=== PATIENT | male | born 1940 | race Caucasian/White ===

== ENCOUNTER 2016-09-13 10:09 | Emergency (ER) | payer MEDICARE, OTHER ==
[~2016-09-13 10:09] MED LIST: ASPI-630 PO; ATOR10TA PO; CELE100C PO; CHOL5POW MC; DABI150C PO; DIGO125T PO; DILT180C29 PO; DOCU-109 PO; DUTA0.5C PO; FENT1PAT91 TP; FENT1PAT93 TP; FINA5TAB4 PO; HYDR-2678 PO; HYDR-2802 PO; LISI10TA2 PO; METO50TA10 PO; MULT-208 PO; PANT40TA3 PO; SERT100T PO; SERT25TA PO; ZOLP5TAB PO; ZOLP5TAB5 PO
--- NOTE | 2016-09-13 11:10 | RAD ---
EXAM: Head and cervical spine CT without contrast. HISTORY: Fall. TECHNIQUE: Computed tomographic images of the head and cervical spine were obtained without contrast. One or more of the following individualized dose reduction techniques were utilized for this examination: 1. Automated exposure control. 2. Adjustment of the mA and/or kV according to patient size. 3. Use of iterative reconstruction technique. COMPARISON: MRI dated 01/20/2013. FINDINGS: Head: There is no acute or subacute hemorrhage. There is no mass effect or midline shift. There is no hydrocephalus. There are scattered areas of hypodensity within the cerebral white, a nonspecific finding likely due to chronic small vessel disease. There is mild age-appropriate cerebral white loss. The orbits, paranasal sinuses and mastoid air cells are unremarkable. No calvarial lesion is seen. Cervical spine: There is cervical kyphosis. There is mild anterolisthesis of C4 on C5 and C7 on T1, and to lesser extent, C5 on C6 and C3 on C4. There is degenerative endplate remodeling with disc space narrowing and osteophytosis predominantly at C5-C6 and C6-C7. There is vacuum phenomenon within these disc spaces. There is laminectomy decompression and instrumented posterior spinal fusion at C3 through C6. There is no evidence of instrumentation fracture or loosening. There is a calcified granuloma within the right upper lobe. No suspicious pulmonary nodule is seen. At C2-C3, there is a disc bulge and endplate remodeling. There is mild left greater than right facet arthropathy. There is minimal left foraminal stenosis. At C3-C4, there is a disc bulge and endplate remodeling. There is severe facet arthropathy. There is mild bilateral foraminal stenosis. At C4-C5, there is a posterior central disc osteophyte complex superimposed on a disc bulge. There is severe right and moderate to severe left facet arthropathy. There is mild right foraminal stenosis. At C5-C6, there is a disc bulge and endplate remodeling. There is mild facet arthropathy. There is mild left foraminal stenosis. At C6-C7, there is a disc bulge and endplate remodeling. There is mild lateral facet arthropathy. There is no stenosis. IMPRESSION: 1. No acute intracranial finding or evidence of acute cervical spine trauma. 2. Decreased attenuation within the cerebral white matter, a nonspecific finding likely due to chronic small vessel disease. 3. Degenerative change throughout the spine, described above. 4. Instrumented posterior spinal fusion and laminectomy decompression at C3-C6.
--- NOTE | 2016-09-13 11:24 | PHYS DOC ---
General Chief Complaint: HEADACHE Stated Complaint: CONFUSION;[facility] FALL YESTERDAY Time Seen by MD: 10:20 Source: patient, family Exam Limitations: clinical condition Problems: History of Present Illness Initial Comments Pt is 75/M to ED with family for head injury and AMS. Spouse reports pt was using walker yesterday going to the kitchen, tried to turn around and became tripped up falling hitting right side of his head on the floor. Fall unwitnessed, pt denies LOC spouse heard the fall and found pt immediately afterward lying on the floor awake/alert. After the fall spouse reports pt with some confusion which persists this morning. Pt very weak this morning but he denies headache/focal weakness/n/v. Pt has h/o atrial fibrillation takes pradaxa, he denies any chest pain/sob/arm or neck discomfort. Denies any other injury from the fall. Pt is questionable historian as he is confused in ED. ED VS: 98.3, 78, 16, 110/65, 98% RA Follows with Dr Byrd [facility]iology at Occurred: yesterday Severity: moderate Injuries/Pain Location: head Context: tripped Loss of Consciousness: no loss of consciousness Modifying Factors: worse with movement, improves with rest Associated Symptoms: trouble walking (denies other complaints) Allergies: Coded Allergies: No Known Drug Allergies (Unverified , 04/16/14) Past Medical History Medical History: other (atrial fibrillation, CAD, HLP, HTN) Surgical History: other (hip replacement, cervical fusion, whipple) Social History Smoker: non-smoker Alcohol: none Drugs: none Review of Systems Constitutional: denies chills, denies diaphoresis, denies fever, malaise, weakness Respiratory: denies cough, denies shortness of breath, denies wheezing Cardiovascular: denies chest pain, denies edema, denies palpitations, denies syncope Gastrointestinal: denies abdominal pain, denies diarrhea, denies nausea, denies vomiting Genitourinary: denies dysuria, frequency, denies hematuria Musculoskeletal: denies back pain, denies joint swelling, denies neck pain Psychiatric/Neurological: see HPI, denies headache Physical Exam General Appearance: no apparent distress, thin Head: other (abrasion/soft tissue swelling right parietal, no palpable bony deformity, negative Reyna/raccoon eyes) Eyes: bilateral eye normal inspection, bilateral eye PERRL, bilateral eye EOMI Ears, Nose, Mouth, Throat: hearing grossly normal, no evidence of ENT injury ( no ear/nose discharge no fluid behind TMs b/l), no dental injury Neck: non-tender, other (supple, at baseline per pt has h/o fusion) Cardiovascular/Respiratory: normal peripheral pulses, normal breath sounds, no respiratory distress, irregularly irregular (rate controlled initial VS, however RVR shortly after arrival persists) Gastrointestinal: non tender, soft Back: no CVA tenderness, no vertebral tenderness Extremities: no evidence of injury, normal range of motion, non-tender, no pedal edema, pelvis stable 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 PHYSICIAN: ASHER LYLES DO REASON: ams PROCEDURE: PORTABLE CHEST 1V EXAM: Chest, single view. HISTORY: Chest pain. COMPARISON: 11/06/2015. FINDINGS: A frontal view of the chest is obtained. There is no infiltrate, effusion or pneumothorax. The heart is normal in size. IMPRESSION: No acute pulmonary finding. DICTATED AND SIGNED BY: CAMMY PEREZ MD DATE: 09/13/16 1131 CC: GAGE [place]; ASHER LYLES DO ~ PATIENT: GILDARDO CANADA ACCOUNT: [id number] : 1940 LOCATION: ER AGE: 75 SEX: M EXAM STATUS: REG ER ORD. PHYSICIAN: RAFAL,ASHER K DO REASON: head trauma PROCEDURE: CT HEAD AND CERVICAL SPINE WO EXAM: Head and cervical spine CT without contrast. HISTORY: Fall. TECHNIQUE: Computed tomographic images of the head and cervical spine were obtained without contrast. One or more of the following individualized dose reduction techniques were utilized for this examination: 1. Automated exposure control. 2. Adjustment of the mA and/or kV according to patient size. 3. Use of iterative reconstruction technique. COMPARISON: MRI dated 01/20/2013. FINDINGS: Head: There is no acute or subacute hemorrhage. There is no mass effect or midline shift. There is no hydrocephalus. There are scattered areas of hypodensity within the cerebral white, a nonspecific finding likely due to chronic small vessel disease. There is mild age-appropriate cerebral white loss. The orbits, paranasal sinuses and mastoid air cells are unremarkable. No calvarial lesion is seen. Cervical spine: There is cervical kyphosis. There is mild anterolisthesis of C4 on C5 and C7 on T1, and to lesser extent, C5 on C6 and C3 on C4. There is degenerative endplate remodeling with disc space narrowing and osteophytosis predominantly at C5-C6 and C6-C7. There is vacuum phenomenon within these disc spaces. There is laminectomy decompression and instrumented posterior spinal fusion at C3 through C6. There is no evidence of instrumentation fracture or loosening. There is a calcified granuloma within the right upper lobe. No suspicious pulmonary nodule is seen. At C2-C3, there is a disc bulge and endplate remodeling. There is mild left greater than right facet arthropathy. There is minimal left foraminal stenosis. At C3-C4, there is a disc bulge and endplate remodeling. There is severe facet arthropathy. There is mild bilateral foraminal stenosis. At C4-C5, there is a posterior central disc osteophyte complex superimposed on a disc bulge. There is severe right and moderate to severe left facet arthropathy. There is mild right foraminal stenosis. At C5-C6, there is a disc bulge and endplate remodeling. There is mild facet arthropathy. There is mild left foraminal stenosis. At C6-C7, there is a disc bulge and endplate remodeling. There is mild lateral facet arthropathy. There is no stenosis. IMPRESSION: 1. No acute intracranial finding or evidence of acute cervical spine trauma. 2. Decreased attenuation within the cerebral white matter, a nonspecific finding likely due to chronic small vessel disease. 3. Degenerative change throughout the spine, described above. 4. Instrumented posterior spinal fusion and laminectomy decompression at C3-C6. DICTATED AND SIGNED BY: CAMMY PEREZ MD DATE: 09/13/16 1103 CC: GAGE [place]; ASHER LYLES DO ~ 1157: Time in department 1h 49min, multiple labs remain pending. Pt will have prolonged ED course due to radiology delay. WBC 19.7, Hb 12.6, plt 78, INR 1.2, lactic acid 1.1, BUN 79, Cr 3.1, alb 2.4, nathalia ca 9.7, t. bili 1.3, alk ph 452, BNP 8547, trop I < 0.017, UA grossly + infection 500cc NS bolus, rocephin 1g IV, cardizem 20mg IV bolus initiated. 1246: Pt discussed with [facility] transfer team, will call back. 1304: Pt discussed with Dr Owusu who accepts EMS transfer for admission and further eval/tx. Agreeable with current care no new orders received. IMPRESSIONS: AMS Mechanical Fall Head injury (pradaxa) Atrial fibrillation with RVR ARF UTI Elevated BNP ASHER LYLES DO September 13, 2016 11:24
--- NOTE | 2016-09-13 11:35 | RAD ---
EXAM: Chest, single view. HISTORY: Chest pain. COMPARISON: 11/06/2015. FINDINGS: A frontal view of the chest is obtained. There is no infiltrate, effusion or pneumothorax. The heart is normal in size. IMPRESSION: No acute pulmonary finding.
[2016-09-13 11:44] LABS: BASO # 0.1 x10^3/uL (0.0-0.2); BASO % 0 % (0-3); EOS # 0.2 x10^3/uL (0.0-0.7); EOS % 1 % (0-3); HEMATOCRIT 38.3 % (39.0-53.0); HEMOGLOBIN 12.6 g/dL (13.0-17.5); LYMPH # 0.9 x10^3/uL (1.0-4.8); LYMPH % 4 % (24-48); MEAN CORPUSCULAR HEMOGLOBIN 26 pg (25-35); MEAN CORPUSCULAR HGB CONC 33 g/dL (31-37); MEAN CORPUSCULAR VOLUME 80 fL (79-100); MONO # 0.5 x10^3/uL (0.0-1.1); MONO % 2 % (0-9); NEUT # 18.1 x10^3uL (1.8-7.7); NEUT % 92 % (31-73); PLATELET COUNT 78 x10^3/uL (140-400); RED BLOOD COUNT 4.81 x10^6/uL (4.30-5.70); RED CELL DISTRIBUTION WIDTH 20.9 % (11.5-14.5); WHITE BLOOD COUNT 19.7 x10^3/uL (4.0-11.0)
[2016-09-13 11:55] LABS: ALBUMIN 2.4 g/dL (3.4-5.0); ALBUMIN/GLOBULIN RATIO 0.6 (1.0-1.7); CALCIUM 8.4 mg/dL (8.5-10.1); CREATININE 3.1 mg/dL (0.7-1.3); GFR 19.7; POTASSIUM 4.7 mmol/L (3.5-5.1); TOTAL BILIRUBIN 1.3 mg/dL (0.2-1.0); TOTAL PROTEIN 6.4 g/dL (6.4-8.2)
--- NOTE | 2016-09-13 12:21 | EKG ---
[address] [address] Test Date: 2016-09-13 Test Time: 12:21:40 Pat Name: GILDARDO CANADA Department: Room: Gender: M Log Cutter: : 1940 Requested By: ASHER LYLES Order Number: [id number] Reading MD: Earnest Cole Measurements Intervals [place] Rate: 119 P: OR: QRS: 36 QRSD: 78 T: 26 QT: 314 QTc: 449 Interpretive Statements ATRIAL FIBRILLATION WITH RVR NON-SPECIFIC ST/T CHANGES Electronically Signed On 09-15-2016 9:50:29 CDT by Earenst Cole
[2016-09-13 12:23] LABS: BILIRUBIN,URINE SMALL (NEG); CLARITY,URINE CLOUDY; COLOR,URINE AMBER; GLUCOSE,URINE NEG (NEG)
[2016-09-13 12:24] LABS: BACTERIA,URINE MANY /HPF (0-FEW); GRANULAR CASTS,URINE MOD /HPF; NITRITE,URINE NEG (NEG); SQUAMOUS EPITHELIAL CELL,UR FEW /LPF; UROBILINOGEN,URINE 1 mg/dL (0.2 mg/dL); WBC,URINE >40 /HPF (0-4)
[2016-09-13 12:33] LABS: % BANDS 10 % (0-9); % EOS 1 % (0-5); % LYMPHS 2 % (24-48); % MONOS 5 % (0-10); % SEGS 82 % (35-66)
[2016-09-13 12:34] LABS: TOXIC GRANULATION SLIGHT; TOXIC VACUOLATION SLIGHT
[2016-09-13 12:36] LABS: ANISOCYTOSIS MOD
[2016-09-13 12:37] LABS: OVALOCYTES OCC
[2016-09-13 12:38] LABS: PLT ESTIMATE DECREASED (ADEQUATE)
[2016-09-13 12:53] LABS: DIG < 0.2 ng/dL (0.9-2.0)
[2016-09-13] MEDS: dilTIAZem 25 MG/5 ML VIAL IVP ONE (13:00)
[2016-09-13] MEDS ORDERED: IV NORMAL SALINE 1,000ML 500 ML IV SCH (13:10)
[2016-09-13] MEDS ORDERED: cefTRIAXone SODIUM 1 GM VIAL IV ONE (13:13)
[2016-09-13] MEDS ORDERED: IV DEXTROSE 5% 0 ML IV ONE (13:13)
[2016-09-13] MEDS ORDERED: IV NORMAL SALINE 50ML 50 ML ONE (13:13)
[2016-09-13] MEDS ORDERED: NOREPINEPHRINE BITARTRATE 4 MG/4 ML VIAL. IV ONE (13:55)
[2016-09-13] MEDS ORDERED: IV NORMAL SALINE 250ML 250 ML ONE (13:55)
[2016-09-13] MEDS ORDERED: NOREPINEPHRINE BITARTRATE 8 MG in IV DEXTROSE 5% 250 ML IV PRN (14:00)
[2016-09-13 14:01] VITALS: BP 97/50
[2016-09-13] MEDS ORDERED: NOREPINEPHRINE BITARTRATE 8 MG in IV NORMAL SALINE 250ML 250 ML IV PRN (14:15)
--- NOTE | 2016-09-13 14:31 | ACF ---
Admission Criteria Forms ATRIAL FIBRILLATION Clinical Indications for Admission to Inpatient Care (Place 'X' for any and all applicable criteria): Admission indicated for ANY ONE of the following(1)(2)(3)(4)(5) : [ ]I. Myocardial ischemia [ ]II. Dyspnea or hypoxemia [ ]III. Hemodynamic instability [ ]IV. Heart failure (e.g., pulmonary edema) (7) [ ]V. New-onset (less than 48 hours) atrial fibrillation with high risk for causing complications secondary to comorbidities (eg, symptomatic heart failure ) [X]. Altered mental status [ ]VII. Syncope [ ]VIII. Patient has implantable cardioverter defibrillator that has fired more than once within past 24hr or needs immediate adjustment of settings that cannot be done other than in inpatient setting. (8) [ ]IX. Suspected accessory pathway (e.g., Oatzl-[id number]-Gupwd syndrome) on ECG [ ]X. Recent systemic thromboembolism (eg, stroke) [ ]XI. Medication toxicity (e.g., digitalis) causing arrhythmia(9) [ ]XII. Underlying medical condition that necessitates inpatient care (e.g., thyrotoxicosis, pneumonia) (10) [ ]XIII. Continuous ECG monitoring is required for condition causing arrhythmia (e.g., severe hyperkalemia, hypokalemia, acid-base disturbance).(11)(12)(13) [ ]XIV. Initiation of antiarrhythmic drug therapy is needed in patient at high risk of adverse effects as indicated by ANY ONE of the following: [ ]a) Significant structural heart disease (e.g., reduced ejection fraction, congenital heart disease, valvular heart disease) [ ]b) Prolonged QT interval [ ]c) Underlying sinus node or atrioventricular conduction disturbances [ ]d) Need for treatment with antiarrhythmic drugs that have significant proarrhythmic potential (e.g., dofetilide, sotalol, procainamide) [ ]e) Patient whose sinus rhythm has never been observed on ECG [ ]XV. Intolerable symptoms despite optimal outpatient treatment [ ]XVI. Elective or urgent cardioversion that cannot be performed on outpatient basis or during observation care. [A] (Use also Atrial Fibrillation: Observation Care ) as appropriate.(14) [ ]XVII.Contraindications and/or Inappropriate clinical situations for Observational Care in patients with Atrial Fibrillation, when ANY ONE of the following is required: [ ]a) Patient with High risk of cardiac embolism (e.g, patients with previous cardiac embolism, LVEF < 40%, age >75 and patients with prosthetic valve) 18 [ ]b) Patient with Moderate risk including DM patient, CAD and patient aged 65-75 18 [ ]c) Patient with any change in cardiac biomarker especially troponin should be managed as high risk in an inpatient setting 19 [ ]d) Physician judgement irrespective of ECG and other diagnostic findings 20 [ ]XVIII.General contraindications and/or Inappropriate clinical situations for Observational Care in patients with Atrial Fibrillation, when ANY ONE of the following is required: [ ]a) Prediction of prolongation of LOS based on ANY ONE of the following may be considered as a contraindication for observational care 2, 3, 4, 5, 6, 7, 8, 9, 10, 11 [ ]i) Age > 65 yrs. [ ]ii) Patient arriving by ambulance [ ]iii) Patient with high acuity [ ]iv) Patient requiring vital sign monitoring [ ]v) Patient on IV medication [ ]b) Systolic blood pressures 180mmHg 3,12 [ ]c) Patient with altered mental status including delirium and other alteration of consciousness3 [ ]d) Patient whose discharge disposition will be to a long term home or rehabilitation home should not be managed in Emergency Department Observation Unit. CMS rule requires 3 days hospital stay before such placement.3,13 [ ]e) Patient with failure to thrive due to broad array of etiologies 3,16,17 [ ]f) Inability to ambulate 3,14 Extended stay beyond goal length of stay may be needed for (1)(25)(26): [ ]a) Unstable comorbidities [ ]b) Persistently uncontrolled atrial fibrillation or other arrhythmias [ ]c) Acute thromboembolic event (e.g., stroke, limb ischemia) [ ]d) Need for inpatient attainment of full anticoagulation The original [employer] content created by [employer] has been revised. The portions of the content which have been revised are identified through the use of italic text or in bold, and [facility] has neither reviewed nor approved the modified material. All other unmodified content is copyright [employer]. Please see references footnoted in the original [facility] edition 2016 Admission Criteria Met?: Yes ROXANA NOVA September 13, 2016 14:31
== END 2016-09-13 14:50 | disposition short-term general hospital (02) ==
LOC: ER 10:09
DX: S09.90XA Unspecified injury of head, initial encounter (principal); E78.5 Hyperlipidemia, unspecified; I10 Essential (primary) hypertension; I25.10 Atherosclerotic heart disease of native coronary artery without angina pectoris; I48.91 Unspecified atrial fibrillation; N17.9 Acute kidney failure, unspecified; N39.0 Urinary tract infection, site not specified; R79.89 Other specified abnormal findings of blood chemistry; W01.198A Fall on same level from slipping, tripping and stumbling with subsequent striking against other object, initial encounter; Y93.01 Activity, walking, marching and hiking; Y99.8 Other external cause status; Y92.090 Kitchen in other non-institutional residence as the place of occurrence of the external cause
CPT/HCPCS: 36415; 70450; 71010; 72125; 80053; 80162; 81001; 82550; 83605; 83880; 84484; 85007; 85027; 85610; 85730; 87086; 87186; 93005; 96365; 96366; 96375; 99285; J0696; J3490

== ENCOUNTER → 2018-02-17 | Outpatient (CLI) | payer MEDICARE, OTHER ==
[~2018-02-17] MED LIST changes: +BUPIVACAINE MPF 0.25% 30 ML VIAL. ONE; +IOHEXOL 300 MG/ML 50 ML VIAL. ONE; +LIDOCAINE 1% PF 30 ML VIAL. ONE; -METO50TA10 PO; +METO50TA29 PO; +methylPREDNISolone ACETATE 40 MG/ML VIAL. ONE
== END | disposition home or self-care (01) ==
LOC: SURG 14:11
PROVIDERS: ATTEND Anesthesiology Pain Medicine
DX: M46.1 Sacroiliitis, not elsewhere classified (principal); Z79.82 Long term (current) use of aspirin; Z79.899 Other long term (current) drug therapy; M19.90 Unspecified osteoarthritis, unspecified site; Z85.828 Personal history of other malignant neoplasm of skin; N40.0 Benign prostatic hyperplasia without lower urinary tract symptoms; Z98.890 Other specified postprocedural states; Z96.643 Presence of artificial hip joint, bilateral
CPT/HCPCS: G0260; J1030; J2001; J3490; Q9967; 27096

== ENCOUNTER → 2018-03-24 | Outpatient (CLI) | payer MEDICARE, OTHER ==
[~2018-03-24] MED LIST changes: -methylPREDNISolone ACETATE 40 MG/ML VIAL. ONE; +methylPREDNISolone ACETATE 80 MG/ML VIAL. ONE
== END | disposition home or self-care (01) ==
LOC: SURG 13:10
PROVIDERS: ATTEND Anesthesiology Pain Medicine
DX: M46.1 Sacroiliitis, not elsewhere classified (principal); I10 Essential (primary) hypertension; M19.90 Unspecified osteoarthritis, unspecified site; Z85.828 Personal history of other malignant neoplasm of skin; Z79.01 Long term (current) use of anticoagulants; Z79.82 Long term (current) use of aspirin; Z79.899 Other long term (current) drug therapy; Z96.643 Presence of artificial hip joint, bilateral; Z98.890 Other specified postprocedural states
CPT/HCPCS: G0260; J1040; J2001; J3490; Q9967; 27096

== ENCOUNTER 2018-05-28 15:53 | Emergency (ER) | payer MEDICARE, OTHER ==
[~2018-05-28 15:53] MED LIST changes: -BUPIVACAINE MPF 0.25% 30 ML VIAL. ONE; -DIGO125T PO; +DIGO125T17 PO; -IOHEXOL 300 MG/ML 50 ML VIAL. ONE; -LIDOCAINE 1% PF 30 ML VIAL. ONE; -methylPREDNISolone ACETATE 80 MG/ML VIAL. ONE
[2018-05-28] MEDS ORDERED: MORPHINE SULFATE 4 MG/ML DISP.SYRIN. IM ONE (16:45)
--- NOTE | 2018-05-28 17:21 | RAD ---
CT scan of the head without contrast 05/28/2018 Clinical History: Fall with head injury. Technique: Unenhanced, contiguous, 5 mm axial sections were obtained through the head. One or more of the following individualized dose reduction techniques were utilized for this study: 1. Automated exposure control. 2. Adjustment of the mA and/or kV according to patient size. 3. Use of iterative reconstruction technique. Findings: Comparison study is dated 09/13/2016. There is generalized parenchymal atrophy. Areas of decreased attenuation are seen within the periventricular and subcortical white matter of both cerebral hemispheres consistent with areas of small vessel ischemic disease. No acute parenchymal abnormality is seen. No extra-axial fluid collection is noted. No skull fracture is seen. Impression: No acute intracranial abnormality is seen. CT scan of the cervical spine without contrast 05/28/2018 Clinical history: Fall with neck injury. Technique: Unenhanced, contiguous, 0.625 mm axial sections were obtained through the cervical spine. Axial, coronal and sagittal reconstructed images were obtained. One or more of the following individualized dose reduction techniques were utilized for this study: 1. Automated exposure control. 2. Adjustment of the mA and/or kV according to patient size. 3. Use of iterative reconstruction technique. Findings: Sagittal and coronal reconstructed images demonstrate mild lateral curvature of the cervical spine, convex to the left. There is slight reversal of normal cervical lordosis. The patient is post laminectomy and posterolateral fusion using pedicle screws, stabilizing rods and bone graft material extending from C3 to C6. Degenerative changes are seen throughout the cervical disc spaces consisting of varying degrees of disc space narrowing, vertebral endplate sclerosis and minimal to mild anterior and posterior vertebral body osteophyte formation. No fracture or subluxation of the cervical vertebrae is seen. Degenerative changes are seen involving the uncovertebral and facet joints throughout the cervical disc spaces. Impression: No fracture or subluxation of the cervical vertebra is identified. Electronically signed by: Juvenal Acharya MD (05/28/2018 5:17 PM) [facility]
--- NOTE | 2018-05-28 17:27 | RAD ---
CT lumbar spine without contrast PQRS statement: CT scans at this facility use dose reduction including either automated exposure control, iterative reconstructions, and /or weight based radiation dosing via mA and kV modification when appropriate to reduce radiation dose to as low as reasonably achievable. History: Neck injury from fall, lower back pain. TECHNIQUE: Helical multiplanar reconstructed noncontrast CT imaging lumbar spine was acquired. FINDINGS: Bone demineralization may represent osteopenia or osteoporosis may decrease sensitivity to detect subtle trabecular fractures. There is mild anterior wedging the L1 vertebral body with compression of the superior endplate, no lucent fracture cleft of the cortex is evident although there is heterogeneous density of the trabecular bone which could indicate that this is an acute fracture. Similarly the T12 vertebral body demonstrates mild deformity of the endplates with minimal height loss at 10% and trabecular heterogeneous bone sclerosis which could indicate an acute fracture although no lucent fracture cleft is evident. Presumed left L1 laminotomy with a focal chronic defect present. Liver cyst extends outside the [id number]. Multilevel disc height loss and disc bulges with endplate and facet osteophytes with spinal canal and neural foraminal stenoses at several levels. IMPRESSION: 1. Mild anterior wedge deformity of the L1 vertebral body with compression of the superior endplate and heterogeneous sclerosis of the trabecular bone, while no lucent fracture cleft is evident, these features raise suspicion of an acute fracture. Similarly the T12 vertebral body demonstrates mild heterogeneous bone sclerosis and mild compression of the endplates without a lucent fracture cleft, also suspicious for an acute fracture. The acuity of these fractures could be definitively determined with MR imaging, to exclude the possibility of chronic fractures. 2. Lumbar disc disease as described above. Electronically signed by: Isaak Marrufo MD (05/28/2018 5:22 PM) [facility]
--- NOTE | 2018-05-28 17:43 | PHYS DOC ---
Past History Past Medical History: A-Fib, CAD, High Cholesterol, Hypertension (RUDDY PATRICIO MD) Past Surgical History: Hip Replacement, Other (RUDDY PATRICIO MD) Alcohol Use: None Drug Use: None (RUDDY PATRICIO MD) Adult General Chief Complaint Chief Complaint: BACK PAIN OR INJURY HPI HPI Patient is a 77 year old male who was in by EMS because of back pain after fall. Patient states he has chronic back pain and taking Percocet at home and this morning had an accidental fall while he was in bathroom from a standing position and injured his back without head injury or loss of consciousness. Patient states rated his pain at 7/10 and states his pain did not get better with Percocet. Patient denies new focal neuro deficit, fever and chills, chest pain and shortness of breath. (RUDDY PATRICIO MD) Review of Systems Review of Systems Constitutional: Denies fever or chills [] Eyes: Denies change in visual acuity, redness, or eye pain [] HENT: Denies nasal congestion or sore throat [] Respiratory: Denies cough or shortness of breath [] Cardiovascular: No additional information not addressed in HPI [] GI: Denies abdominal pain, nausea, vomiting, bloody stools or diarrhea [] : Denies dysuria or hematuria [] Musculoskeletal: Reports back pain, denies joint pain [] Integument: Denies rash or skin lesions [] Neurologic: Denies headache, focal weakness or sensory changes [] Endocrine: Denies polyuria or polydipsia [] All other systems were reviewed and found to be within normal limits, except as documented in this note. (RUDDY PATRICIO MD) Current Medications Current Medications Current Medications Medications (Trade) Dose Ordered Sig/Batsheva Start Time Stop Time Status Last Admin Dose Admin Morphine Sulfate (Morphine 4mg Syringe) 4 mg 1X ONCE 05/28/18 16:45 05/28/18 16:46 DC 05/28/18 17:33 4 MG (RUDDY PATRICIO MD) Allergies Allergies Allergies Coded Allergies Type Severity Reaction Last Updated Verified No Known Drug Allergies 04/16/14 No (RUDDY PATRICIO MD) Physical Exam Physical Exam Constitutional: Well developed, well nourished, mild acute distress, non-toxic appearance. [] HENT: Normocephalic, atraumatic Eyes: PERRLA, EOMI, conjunctiva normal, no discharge. [] Neck: Normal range of motion, no tenderness, supple, no stridor. [] Cardiovascular: Irregularly irregular with tachycardia, no murmur [] Lungs & Thorax: Bilateral breath sounds clear to auscultation [] Abdomen: Bowel sounds normal, soft, no tenderness, no masses, no pulsatile masses. [] Skin: Warm, dry, no erythema, no rash. [] Back: No lumbar midline tenderness, no CVA tenderness. [] Extremities: No tenderness, no cyanosis, no clubbing, ROM intact, no edema. [] Neurologic: Alert and oriented X 3, normal motor function, normal sensory function, no focal deficits noted. [] Psychologic: Affect normal, judgement normal, mood normal. [] (RUDDY PATRICIO MD) Current Patient Data Vital Signs Vital Signs Date Time Temp Pulse Resp B/P (MAP) Pulse Ox O2 Delivery O2 Flow Rate FiO2 05/28/18 17:33 20 95 Room Air (RUDDY PATRICIO MD) EKG EKG EKG interpreted by me. EKG at 1752 showed atrial fibrillation with heart rate of 135, no acute ST and T-wave abnormalities. (RUDDY PATRICIO MD) Radiology/Procedures Radiology/[place] [address] IMAGING REPORT Signed PATIENT: GILDARDO CANADA ACCOUNT: [id number] : 1940 LOCATION: ER AGE: 77 SEX: M EXAM STATUS: REG ER ORD. PHYSICIAN: RUDDY PATRICIO MD REASON: Injury from fall, headache, neck and lower back pain PROCEDURE: CT HEAD AND CERVICAL SPINE WO CT scan of the head without contrast 05/28/2018 Clinical History: Fall with head injury. Technique: Unenhanced, contiguous, 5 mm axial sections were obtained through the head. One or more of the following individualized dose reduction techniques were utilized for this study: 1. Automated exposure control. 2. Adjustment of the mA and/or kV according to patient size. 3. Use of iterative reconstruction technique. Findings: Comparison study is dated 09/13/2016. There is generalized parenchymal atrophy. Areas of decreased attenuation are seen within the periventricular and subcortical white matter of both cerebral hemispheres consistent with areas of small vessel ischemic disease. No acute parenchymal abnormality is seen. No extra-axial fluid collection is noted. No skull fracture is seen. Impression: No acute intracranial abnormality is seen. CT scan of the cervical spine without contrast 05/28/2018 Clinical history: Fall with neck injury. Technique: Unenhanced, contiguous, 0.625 mm axial sections were obtained through the cervical spine. Axial, coronal and sagittal reconstructed images were obtained. One or more of the following individualized dose reduction techniques were utilized for this study: 1. Automated exposure control. 2. Adjustment of the mA and/or kV according to patient size. 3. Use of iterative reconstruction technique. Findings: Sagittal and coronal reconstructed images demonstrate mild lateral curvature of the cervical spine, convex to the left. There is slight reversal of normal cervical lordosis. The patient is post laminectomy and posterolateral fusion using pedicle screws, stabilizing rods and bone graft material extending from C3 to C6. Degenerative changes are seen throughout the cervical disc spaces consisting of varying degrees of disc space narrowing, vertebral endplate sclerosis and minimal to mild anterior and posterior vertebral body osteophyte formation. No fracture or subluxation of the cervical vertebrae is seen. Degenerative changes are seen involving the uncovertebral and facet joints throughout the cervical disc spaces. Impression: No fracture or subluxation of the cervical vertebra is identified. Electronically signed by: Juvenal Acharya MD (05/28/2018 5:17 PM) [facility] DICTATED AND SIGNED BY: JUVENAL ACHARYA MD DATE: 05/28/18 [id number] CC: RUDDY PATRICIO MD; [facility] [place] ~ [address] [address] IMAGING REPORT Signed PATIENT: GILDARDO CANADA ACCOUNT: [id number] : 1940 LOCATION: ER AGE: 77 SEX: M EXAM STATUS: REG ER ORD. PHYSICIAN: RUDDY PATRICIO MD REASON: Injury from fall, headache, neck and lower back pain PROCEDURE: CT LUMBAR SPINE WO CONTRAST CT lumbar spine without contrast PQRS statement: CT scans at this facility use dose reduction including either automated exposure control, iterative reconstructions, and /or weight based radiation dosing via mA and kV modification when appropriate to reduce radiation dose to as low as reasonably achievable. History: Neck injury from fall, lower back pain. TECHNIQUE: Helical multiplanar reconstructed noncontrast CT imaging lumbar spine was acquired. FINDINGS: Bone demineralization may represent osteopenia or osteoporosis may decrease sensitivity to detect subtle trabecular fractures. There is mild anterior wedging the L1 vertebral body with compression of the superior endplate, no lucent fracture cleft of the cortex is evident although there is heterogeneous density of the trabecular bone which could indicate that this is an acute fracture. Similarly the T12 vertebral body demonstrates mild deformity of the endplates with minimal height loss at 10% and trabecular heterogeneous bone sclerosis which could indicate an acute fracture although no lucent fracture cleft is evident. Presumed left L1 laminotomy with a focal chronic defect present. Liver cyst extends outside the [id number]. Multilevel disc height loss and disc bulges with endplate and facet osteophytes with spinal canal and neural foraminal stenoses at several levels. IMPRESSION: 1. Mild anterior wedge deformity of the L1 vertebral body with compression of the superior endplate and heterogeneous sclerosis of the trabecular bone, while no lucent fracture cleft is evident, these features raise suspicion of an acute fracture. Similarly the T12 vertebral body demonstrates mild heterogeneous bone sclerosis and mild compression of the endplates without a lucent fracture cleft, also suspicious for an acute fracture. The acuity of these fractures could be definitively determined with MR imaging, to exclude the possibility of chronic fractures. 2. Lumbar disc disease as described above. Electronically signed by: Selin Red MD (05/28/2018 5:22 PM) [facility] [place] DICTATED AND SIGNED BY: SELIN RED MD DATE: 05/28/18 5037 CC: RUDDY PATRICIO MD; [facility] [place] ~ (RUDDY PATRICIO MD) Radiology/Procedures CT compression fx. T12 and L1 Wedge, DJD See formal report. (GERARD COATES MD) Course & Med Decision Making Course & Med Decision Making Pertinent Labs and Imaging studies reviewed. (See chart for details) Evaluation of patient in ER showed 77-year-old male patient with a fall and injury to his back. Patient had atrial flutter patient with RVR and compression fracture of L1. Dr. Brooks was consulted at 1743 and recommended to transfer patient to [facility]. Cardiac enzyme and labs and pending. Patient care transferred to Dr. Coates at 1800. Patient and his family informed about plan of care and was transferred to [facility]. (RUDDY PATRICIO MD) Course & Med Decision Making Discussed presentation, testing and tx plan with Dr. Calabrese will accept pt. in transfer. Discussed presentation,testing and tx. plan with Neurosurgery- Dr. Sari LIM. Will consult on pt. on transfer. MRI 's pending. Impression: 1. Fall 2. Acute on Chronic Back Pain 3. Hx. of Afib. 4. Mild Leukocytosis 12.3 5. Thrombocytopenia 128 6. DM glu 147 7. Compression fx. T12 L1 Wedge (GERARD COATES MD) Dragon Disclaimer Dragon Disclaimer This electronic medical record was generated, in whole or in part, using a voice recognition dictation system. (RUDDY PATRICIO MD) Departure Departure: Impression: Primary Impression: Compression fracture of L1 lumbar vertebra Additional Impressions: Atrial fibrillation with RVR Fall at home Referrals: [facility] (PCP) Dragon Disclaimer This chart was dictated in whole or in part using Voice Recognition software in a busy, high-work load, and often noisy Emergency Department environment. It may contain unintended and wholly unrecognized errors or omissions. (GERARD COATES MD) Discharge Summary Brief Hospital Course Allergies Allergies Coded Allergies Type Severity Reaction Last Updated Verified No Known Drug Allergies 04/16/14 No Vital Signs Vital Signs Date Time Temp Pulse Resp B/P (MAP) Pulse Ox O2 Delivery O2 Flow Rate FiO2 05/28/18 20:10 18 98 Room Air 05/28/18 19:59 105 134/85 (101) 05/28/18 15:53 97.7 Lab Results Laboratory Tests Test 05/28/18 18:00 White Blood Count 12.3 x10^3/uL (4.0-11.0) Red Blood Count 5.63 x10^6/uL (4.30-5.70) Hemoglobin 15.1 g/dL (13.0-17.5) Hematocrit 46.2 % (39.0-53.0) Mean Corpuscular Volume 82 fL (79-100) Mean Corpuscular Hemoglobin 27 pg (25-35) Mean Corpuscular Hemoglobin Concent 33 g/dL (31-37) Red Cell Distribution Width 16.7 % (11.5-14.5) Platelet Count 128 x10^3/uL (140-400) Neutrophils (%) (Auto) 90 % (31-73) Lymphocytes (%) (Auto) 4 % (24-48) Monocytes (%) (Auto) 6 % (0-9) Eosinophils (%) (Auto) 0 % (0-3) Basophils (%) (Auto) 1 % (0-3) Neutrophils # (Auto) 11.0 x10^3uL (1.8-7.7) Lymphocytes # (Auto) 0.5 x10^3/uL (1.0-4.8) Monocytes # (Auto) 0.7 x10^3/uL (0.0-1.1) Eosinophils # (Auto) 0.0 x10^3/uL (0.0-0.7) Basophils # (Auto) 0.1 x10^3/uL (0.0-0.2) Sodium Level 141 mmol/L (136-145) Potassium Level 4.1 mmol/L (3.5-5.1) Chloride Level 105 mmol/L (98-107) Carbon Dioxide Level 26 mmol/L (21-32) Anion Gap 10 (6-14) Blood Urea Nitrogen 26 mg/dL (8-26) Creatinine 1.3 mg/dL (0.7-1.3) Estimated GFR (Cockcroft-Gault) 53.5 BUN/Creatinine Ratio 20 (6-20) Glucose Level 147 mg/dL (70-99) Calcium Level 8.9 mg/dL (8.5-10.1) Total Bilirubin 0.9 mg/dL (0.2-1.0) Aspartate Amino Transf (AST/SGOT) 28 U/L (15-37) Alanine Aminotransferase (ALT/SGPT) 27 U/L (16-63) Alkaline Phosphatase 171 U/L (46-116) Creatine Kinase 71 U/L (39-308) Troponin I Quantitative < 0.017 ng/mL (0-0.055) UB-Dpn-Q-Type Natriuretic Peptide 2118 pg/mL (0-449) Total Protein 7.0 g/dL (6.4-8.2) Albumin 3.5 g/dL (3.4-5.0) Albumin/Globulin Ratio 1.0 (1.0-1.7) Brief Hospital Course Mr. Canada is a 77 old male who presented with hx fall and found to have wedge fx T12, L1- Transfer to [facility] - Dr. Calabrese, Consult with Neurosurgery. (GERARD COATES MD) Discharge Information Condition at Discharge: Improved, Stable Disposition/Orders: D/C to Another Facility Dischare Medications Current Medications Morphine Sulfate (Morphine 4mg Syringe) 4 mg 1X ONCE IM Last administered on at 17:33; Start 05/28/18 at 16:45; Stop 05/28/18 at 16:46; Status DC Diltiazem HCl (Cardizem Iv Push) 20 mg 1X ONCE IVP Last administered on at 18:12; Start 05/28/18 at 18:00; Stop 05/28/18 at 18:01; Status DC Morphine Sulfate (Morphine 10mg Syringe) 10 mg 1X ONCE SQ Last administered on 05/28/18at 20:10; Start 05/28/18 at 20:15; Stop 05/28/18 at 20:16; Status DC Active Scripts Active Reported Multi-Day Vitamins (Multivitamin) 1 Each Tablet 1 Tab PO DAILY Zoloft (Sertraline Hcl) 100 Mg Tablet 1 Tab PO DAILY Protonix (Pantoprazole Sodium) 40 Mg Tablet.dr 1 Tab PO BID Metoprolol Succinate ( Xl ) (Metoprolol Succinate) 50 Mg Tab.er.24h 1 Tab PO DAILY DURAGESIC 50mcg/hr (Fentanyl) 1 Each Patch.td72 1 Patch TP Q3DAYS Colace (Docusate Sodium) 100 Mg Capsule 1 Cap PO DAILY Diltiazem 24HR Cd (Diltiazem Hcl) 180 Mg Cap.er.24h 2 Cap PO DAILY Digoxin 125 Mcg Tablet 1 Tab PO DAILY Pradaxa (Dabigatran Etexilate Mesylate) 150 Mg Capsule 1 Cap PO DAILY Aspirin 81 Mg Tab.chew 81 Mg PO DAILY Zoloft (Sertraline Hcl) 25 Mg Tablet 1 Tab PO DAILY Lortab 5-325 mg Tablet (Hydrocodone/Acetaminophen) 1 Each Tablet 1 Tab PO PRN Q6HRS PRN Celebrex (Celecoxib) 100 Mg Capsule 2 Cap PO BID (GERARD COATES MD) Problem Qualifiers RUDDY PATRICIO MD May 28, 2018 17:43 GERARD COATES MD May 29, 2018 01:45
[2018-05-28] MEDS ORDERED: dilTIAZem 25 MG/5 ML VIAL IVP ONE (18:00)
[2018-05-28 18:14] LABS: BASO # 0.1 x10^3/uL (0.0-0.2); BASO % 1 % (0-3); EOS % 0 % (0-3); HEMATOCRIT 46.2 % (39.0-53.0); HEMOGLOBIN 15.1 g/dL (13.0-17.5); LYMPH # 0.5 x10^3/uL (1.0-4.8); LYMPH % 4 % (24-48); MEAN CORPUSCULAR HEMOGLOBIN 27 pg (25-35); MEAN CORPUSCULAR HGB CONC 33 g/dL (31-37); MEAN CORPUSCULAR VOLUME 82 fL (79-100); MONO # 0.7 x10^3/uL (0.0-1.1); MONO % 6 % (0-9); NEUT % 90 % (31-73); PLATELET COUNT 128 x10^3/uL (140-400); RED BLOOD COUNT 5.63 x10^6/uL (4.30-5.70); RED CELL DISTRIBUTION WIDTH 16.7 % (11.5-14.5); WHITE BLOOD COUNT 12.3 x10^3/uL (4.0-11.0)
[2018-05-28 18:26] LABS: ALBUMIN 3.5 g/dL (3.4-5.0); CALCIUM 8.9 mg/dL (8.5-10.1); CREATININE 1.3 mg/dL (0.7-1.3); GFR 53.5; POTASSIUM 4.1 mmol/L (3.5-5.1); TOTAL BILIRUBIN 0.9 mg/dL (0.2-1.0)
[2018-05-28 19:59] VITALS: BP 134/85
[2018-05-28] MEDS ORDERED: MORPHINE SULFATE 10 MG/ML SYRINGE. ONE (20:05)
[2018-05-28] MEDS ORDERED: MORPHINE SULFATE 10 MG/ML SYRINGE. SQ ONE (20:15)
--- NOTE | 2018-05-29 07:45 | RAD ---
Indication:A. Fib, weakness, recent fall. TECHNIQUE:Portable AP chest X-ray COMPARISON: None FINDINGS: Heart is normal in size. Lungs are slightly hyperlucent with prominent scattered interstitial opacities. No focal consolidation. No pneumothorax or pleural effusion. Visualized bony thorax is within normal limits. IMPRESSION: Findings of COPD with superimposed atypical/viral infection not ruled out. Electronically signed by: Luke Rose DO (05/29/2018 7:40 AM) [facility]
--- NOTE | 2018-06-02 09:47 | EKG ---
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
== END 2018-05-28 21:13 | disposition short-term general hospital (02) ==
LOC: ER 15:53
DX: S22.080A Wedge compression fracture of T11-T12 vertebra, initial encounter for closed fracture (principal); S32.010A Wedge compression fracture of first lumbar vertebra, initial encounter for closed fracture; I48.2 Chronic atrial fibrillation; G89.29 Other chronic pain; D72.829 Elevated white blood cell count, unspecified; D69.6 Thrombocytopenia, unspecified; E11.8 Type 2 diabetes mellitus with unspecified complications; E78.00 Pure hypercholesterolemia, unspecified; I10 Essential (primary) hypertension; W18.30XA Fall on same level, unspecified, initial encounter; Y93.89 Activity, other specified; Y92.091 Bathroom in other non-institutional residence as the place of occurrence of the external cause; Y99.8 Other external cause status
CPT/HCPCS: 36415; 70450; 71045; 72125; 72131; 80053; 82550; 83880; 84484; 85025; 93005; 96372; 96374; 99285; J2270; J3490

== ENCOUNTER → 2020-10-02 | Day surgery (SDC) | payer MEDICARE, OTHER ==
[~2020-10-02] MED LIST changes: +BUPIVACAINE MPF 0.25% 10 ML VIAL. ONE; -HYDR-2802 PO; +HYDR-3424 PO; +IOHEXOL 300 MG/ML 50 ML VIAL. ONE; +LIDOCAINE 1% PF 30 ML VIAL. ONE; +LISI10TA16 PO; -LISI10TA2 PO; +methylPREDNISolone ACETATE 40 MG/ML VIAL. ONE
[2020-10-02 12:52] VITALS: BP 129/91
== END | disposition home or self-care (01) ==
LOC: SURG 11:04
PROVIDERS: ATTEND Anesthesiology
DX: M46.1 Sacroiliitis, not elsewhere classified (principal); M19.90 Unspecified osteoarthritis, unspecified site; I10 Essential (primary) hypertension; E11.9 Type 2 diabetes mellitus without complications; E78.5 Hyperlipidemia, unspecified; F32.9 Major depressive disorder, single episode, unspecified; I48.91 Unspecified atrial fibrillation; I25.10 Atherosclerotic heart disease of native coronary artery without angina pectoris; K21.9 Gastro-esophageal reflux disease without esophagitis; Z79.01 Long term (current) use of anticoagulants; Z79.899 Other long term (current) drug therapy; Z96.643 Presence of artificial hip joint, bilateral; Z85.828 Personal history of other malignant neoplasm of skin; Z86.73 Personal history of transient ischemic attack (TIA), and cerebral infarction without residual deficits
CPT/HCPCS: 27096; J1030; J3490; Q9967; G0260

== ENCOUNTER → 2020-11-13 | Day surgery (SDC) | payer MEDICARE, OTHER ==
[~2020-11-13] MED LIST changes: -IOHEXOL 300 MG/ML 50 ML VIAL. ONE; -methylPREDNISolone ACETATE 40 MG/ML VIAL. ONE
[2020-11-13 12:30] VITALS: BP 133/97
== END ==
LOC: SURG 11:40
PROVIDERS: ATTEND Anesthesiology
DX: M47.816 Spondylosis without myelopathy or radiculopathy, lumbar region (principal); M54.16 Radiculopathy, lumbar region; I10 Essential (primary) hypertension; M19.90 Unspecified osteoarthritis, unspecified site; Z86.73 Personal history of transient ischemic attack (TIA), and cerebral infarction without residual deficits; Z79.899 Other long term (current) drug therapy; Z88.8 Allergy status to other drugs, medicaments and biological substances; Z98.890 Other specified postprocedural states
CPT/HCPCS: 64493; 64494; J3490

== ENCOUNTER → 2021-01-01 | Day surgery (SDC) | payer MEDICARE, OTHER ==
[2021-01-01 15:09] VITALS: BP 140/73
== END | disposition home or self-care (01) ==
LOC: SURG 14:06
PROVIDERS: ATTEND Anesthesiology
DX: M47.816 Spondylosis without myelopathy or radiculopathy, lumbar region (principal); Z79.82 Long term (current) use of aspirin; Z79.899 Other long term (current) drug therapy
CPT/HCPCS: 64493; 64494; J3490

== ENCOUNTER → 2021-01-23 | Day surgery (SDC) | payer MEDICARE, OTHER ==
[~2021-01-23] MED LIST changes: +APIX5TAB3 PO; +ASCO500C PO; +BUPIVACAINE MPF 0.25% 10 ML VIAL. IJ ONE; +CYAN500T7 PO; +DEXAMETHASONE SOD PHOS 4 MG/ML VIAL. IVP ONE; +DEXAMETHASONE SOD PHOS 4 MG/ML VIAL. ONE; +LIDOCAINE 1% PF 30 ML VIAL. INJ ONE; +METO-247 PO; +MIDAZOLAM HCL PF 2 MG/2 ML VIAL. ONE; +OXYC10TA46 PO; +TAMS0.4C97 PO; +TRAM50TA PO; +ZOLP6.252 PO; +[UNRECOGNIZED DRUG - OTHER]; +albuterol; +ergocalciferol PO
[2021-01-23 09:55] VITALS: BP 135/76
== END | disposition home or self-care (01) ==
LOC: SURG 08:18
PROVIDERS: ATTEND Anesthesiology
DX: M47.816 Spondylosis without myelopathy or radiculopathy, lumbar region (principal); I10 Essential (primary) hypertension; M19.90 Unspecified osteoarthritis, unspecified site; Z98.890 Other specified postprocedural states; Z79.899 Other long term (current) drug therapy
CPT/HCPCS: 64635; 64636; J1100; J3010; J3490; J2250

== ENCOUNTER → 2021-02-20 | Day surgery (SDC) | payer MEDICARE, OTHER ==
[~2021-02-20] MED LIST changes: +AMOX1TAB11 PO; +DEXAMETHASONE SOD PHOS 10 MG/ML VIAL. IV ONE; +DEXAMETHASONE SOD PHOS 10 MG/ML VIAL. ONE; -DEXAMETHASONE SOD PHOS 4 MG/ML VIAL. IVP ONE; -DEXAMETHASONE SOD PHOS 4 MG/ML VIAL. ONE
[2021-02-20 09:55] VITALS: BP 138/89
== END | disposition home or self-care (01) ==
LOC: SURG 07:34
PROVIDERS: ATTEND Anesthesiology
DX: M47.816 Spondylosis without myelopathy or radiculopathy, lumbar region (principal)
CPT/HCPCS: 64635; 64636; 99152; 99153; J1100; J3010; J3490; J2250

== ENCOUNTER 2021-03-13 17:17 | Emergency (ER) | payer MEDICARE, OTHER ==
[~2021-03-13] VITALS: Ht 182.9 cm; Wt 81.8 kg
[~2021-03-13 17:17] MED LIST changes: -AMOX1TAB11 PO; -BUPIVACAINE MPF 0.25% 10 ML VIAL. IJ ONE; -BUPIVACAINE MPF 0.25% 10 ML VIAL. ONE; -DEXAMETHASONE SOD PHOS 10 MG/ML VIAL. IV ONE; -DEXAMETHASONE SOD PHOS 10 MG/ML VIAL. ONE; -LIDOCAINE 1% PF 30 ML VIAL. INJ ONE; -LIDOCAINE 1% PF 30 ML VIAL. ONE; -MIDAZOLAM HCL PF 2 MG/2 ML VIAL. ONE
--- NOTE | 2021-03-13 18:00 | PHYS DOC ---
Past History Past Medical History: A-Fib, CAD, High Cholesterol, Hypertension Additional Past Medical Histor: osteoporosis, neuropathy, insomnia, BPH (JODIE EASON APRN) Past Surgical History: Hip Replacement, Other (JODIE EASON APRN) Alcohol Use: None Drug Use: None (JODIE EASON APRN) General Adult EDM: Chief Complaint: DENTAL PROBLEM HPI: HPI: Patient is a 80-year-old male presents with bleeding from mouth after recent extraction. Patient states that bleeding started last night but was able to be controlled. Patient states that bleeding started again this afternoon and was seen at [facility]. Patient was told to use gauze to area that was b leeding for 1 hour. Family states he is held because there for the last hour without any relief in bleeding. Patient is currently on Eliquis. Denies pain or any other complaints at this time. (JODIE EASON APRN) Review of Systems: Review of Systems: ROS At least 10 ROS systems have been reviewed and are negative except as documented in the HPI. General: Negative except as outlined in HPI above. Skin: Negative except as outlined in HPI above. HEENT: Negative except as outlined in HPI above. Neck: Negative except as outlined in HPI above. Respiratory: Negative except as outlined in HPI above.. Cardiovascular: Negative except as outlined in HPI above. Abdomen: Negative except as outlined in HPI above. : Negative except as outlined in HPI above. Back/MSK: Negative except as outlined in HPI above. Neuro: Negative except as outlined in HPI above. Psych: Negative except as outlined in HPI above. (JODIE EASON APRN) Allergies: Allergies: Allergies Coded Allergies Type Severity Reaction Last Updated Verified No Known Drug Allergies 02/19/21 No (JODIE EASON APRN) Physical Exam: PE: Constitutional: Well developed, well nourished, no acute distress, non-toxic appearance. [] HENT: Normocephalic, atraumatic, bilateral external ears normal, oropharynx moist, no oral exudates, nose normal. [] Eyes: PERRLA, EOMI, conjunctiva normal, no discharge. [] Neck: Normal range of motion, no tenderness, supple, no stridor. [] Cardiovascular:Heart rate regular rhythm, no murmur [] Lungs & Thorax: Bilateral breath sounds clear to auscultation [] Abdomen: Bowel sounds normal, soft, no tenderness, no masses, no pulsatile masses. [] Skin: Warm, dry, no erythema, no rash. [] Back: No tenderness, no CVA tenderness. [] Extremities: No tenderness, no cyanosis, no clubbing, ROM intact, no edema. [] Neurologic: Alert and oriented X 3, normal motor function, normal sensory function, no focal deficits noted. [] Psychologic: Affect normal, judgement normal, mood normal. [] (JODIE EASON APRN) Current Patient Data: Vital Signs: Vital Signs Date Time Temp Pulse Resp B/P (MAP) Pulse Ox O2 Delivery O2 Flow Rate FiO2 03/13/21 17:49 98.1 104 20 141/89 (106) 99 Room Air (JODIE EASON APRN) EKG: EKG: [] (JODIE EASON APRN) Radiology/Procedures: Radiology/Procedures: [] (JODIE EASON APRN) Heart Score: C/O Chest Pain: No Risk Factors: Risk Factors: DM, Current or recent (<one month) smoker, HTN, HLP, family history of CAD, obesity. Risk Scores: Score 0 - 3: 2.5% MACE over next 6 weeks - Discharge Home Score 4 - 6: 20.3% MACE over next 6 weeks - Admit for Clinical Observation Score 7 - 10: 72.7% MACE over next 6 weeks - Early Invasive Strategies (JODIE EASON APRN) Course & Med Decision Making: Course & Med Decision Making Pertinent Labs and Imaging studies reviewed. (See chart for details) [] 80-year-old male presents with bleeding from extraction. Patient was seen at [facility] and told to hold gauze to area to help control bleeding. Patient states he has been holding for 1 hour with no relief. Patient is currently on Eliquis. TXA applied to gauze and held in place for bleeding control. Upon reassessment bleeding was not controlled and bleeding had began again. Site injected with lidocaine with epi along with let applied to gauze and held direct pressure for 10 minutes. Upon reassessment bleeding was controlled. Consulted a dentist for suggestions on management and care. Advised by dentist, that patient can go home if bleeding is controlled.and follow-up first thing in the morning with patient's dentist. Prior to discharge, bleeding returned. Contacted dentist Dr. Fraser, who was on- call. Dr. Fraser stated that patient needed to be seen by an oral surgeon and was not able to be seen by general dentist. is contacted oral surgeon and will call back for further recommendation. returned my call and stated that he was unable to reach any oral surgeons at this time and that "he was just a general dentist and was unable to take care of this problem, and needed an oral surgeon". Consulted a second dentist who was able to recommend removing blood blister and packing with Gelfoam. Numbed the area with lidocaine with epi and removed the blood blister. Gelfoam was inserted and 2 sutures were placed to help keep Gelfoam in place. Bleeding seems to be controlled at this time. Discussed with daughter and patient the importance of following up with dentist first thing in the morning. Both patient and daughter state that they understand discharge instructions. Advised patient if if bleeding begins at home, you can use a tea bag to help with bleeding by holding it there with direct pressure. If bleeding is unable to be controlled, patient would need to return to the emergency room. Advised patient to avoid any solid foods at this time and liquids only, to avoid trauma and bleeding. Patient given hydrocodone to help with pain and started on antibiotics. Patient given 1 dose of antibiotics in the emergency room prior to discharge. Patient is hemodynamically stable upon disposition and will follow up with dentist in the morning. (JODIE EASON APRN) Course & Med Decision Making Did not see or evaluate patient. Did not discuss patient with HEAD ATHLETIC TRAINER. Agree with HEAD ATHLETIC TRAINER's work-up and disposition per note. (MARY SHIPLEY MD) Lyricon Disclaimer: Srinath Disclaimer: This electronic medical record was generated, in whole or in part, using a voice recognition dictation system. (JODIE EASON APRN) Departure Departure: Impression: Primary Impression: History of dental problems Disposition: HOME / SELF CARE / HOMELESS Condition: STABLE Referrals: [facility] (PCP) Patient Instructions: Dental Extraction, Care After Additional Instructions: You were seen in the emergency room for uncontrolled bleeding from extraction site. We were able to pack the wound and control bleeding. You will need to call your dentist first thing in the morning to follow-up. Liquids only for now to avoid further trauma and area to bleed again. Make sure you are not using any tobacco products, straws. I gave you pain medication to help with discomfort while in the ER along with first dose of antibiotic. I am sending you home with prescription for pain medicine and an antibiotic to help prevent infection. If bleeding begins at home, you can use a tea bag to help with bleeding by holding direct pressure to the area. If you are unable to control bleeding, please return to the ER for further management. EMERGENCY DEPARTMENT GENERAL DISCHARGE INSTRUCTIONS Thank you for coming to [facility] (ED) today and trusting us with you care. We trust that you had a positivie experience in our Emergency Department. If you wish to speak to the department management, you may call the director at [phone]. YOUR FOLLOW UP INSTRUCTIONS ARE FOLLOWS: 1. Do you have a private Doctor? If you do not have a private doctor, please ask for a resource list of physicians or clinics that may be able to assist you with follow up care. 2. The Emergency Physician has interpreted your x-rays. The X-Ray specialist will also review them. If there is a change in the findings, you will be notified in 48 hours when at all possible. 3. A lab test or culture has been done, your results will be reviewed and you will be notified if you need a change in treatment. ADDITIONAL INSTRUCTIONS AND INFORMATION: 1. Your care today has been supervised by a physician who is specially trained in emergency care. Many problems require more than one evaluation for a complete diagnosis and treatment. We recommend that you schedule your follow up appointment as recommended to ensure complete treatment of you illness or injury. If you are unable to obtain follow up care and continue to have a problem, or if your condition worsens, we recommend that you return to the ED. 2. We are not able to safely determine your condition over the phone nor are we able to give sound medical advice over the phone. For these safety reasons, if you call for medical advice we will ask you to come to the ED for further evaluation. 3. If you have any questions regarding these discharge instructions please call the ED at [phone]. SAFETY INFORMATION: In the interest of safety, wellness, and injury prevention; we encourage you to wear your sealbelt, if you smoke; quite smoking, and we encourage family to use a protective helmet for bicycling and other sporting events that present an increased risk for head injury. IF YOUR SYMPTOMS WORSEN OR NEW SYMPTOMS DEVELOP, OR YOU HAVE CONCERNS ABOUT YOUR CONDITION; OR IF YOUR CONDITION WORSENS WHILE YOU ARE WAITING FOR YOUR FOLLOW UP APPOINTMENT; EITHER CONTACT YOUR PRIMARY CARE DOCTOR, THE PHYSICIAN WHOSE NAME AND NUMBER YOU WERE GIVEN, OR RETURN TO THE ED IMMEDIATELY. Scripts Amoxicillin/Potassium Clav (AMOX TR-K CLV 875-125 MG TAB) 1 Each Tablet 1 TAB PO BID for dental infection for 7 Days, #14 TAB Prov: JODIE EASON APRN 03/13/21 JODIE EASON APRN Mar 13, 2021 18:00 MARY SHIPLEY MD Mar 13, 2021 23:48
[2021-03-13] MEDS ORDERED: TRANEXAMIC ACID 1,000 MG/10 ML VIAL. TOP ONE ×2 (18:15→19:15)
[2021-03-13] MEDS: GELATIN SPONGE SIZE 12-7MM SPONGE. TP ONE ×2 (18:30→20:50)
[2021-03-13] MEDS ORDERED: LIDOCAINE 2% 20 ML VIAL. ONE (19:02)
[2021-03-13] MEDS ORDERED: LIDOCAINE/EPI/TETRACAINE TOPICAL GEL 3 ML. TP ONE (19:15)
[2021-03-13] MEDS ORDERED: LIDOCAINE 2%/EPI 1:100,000 20 ML VIAL. IJ ONE (19:15)
[2021-03-13 21:00] VITALS: BP 154/87
[2021-03-13] MEDS ORDERED: AMOXICILLIN/K CLAV 875/125MG TABLET. PO ONE (21:00)
[2021-03-13] MEDS ORDERED: HYDROcodone/APAP 5/325MG 1 TAB TABLET PO ONE (21:00)
[2021-03-13] MEDS ORDERED: AMOX1TAB11 PO (21:13)
[2021-03-13] MEDS ORDERED: ACETAMINOPHEN/CODEINE 300/30MG 4TABLET STARTPACK. PO ONE (21:15)
== END 2021-03-13 21:25 | disposition home or self-care (01) ==
LOC: ER 17:17
DX: R04.1 Hemorrhage from throat (principal); E78.5 Hyperlipidemia, unspecified; I10 Essential (primary) hypertension
CPT/HCPCS: 99285-25